=== PATIENT | male | born 1955 | race Caucasian/White ===

== ENCOUNTER 2022-06-10 10:43 | Outpatient (CLI) | payer MEDICARE, BC, SELFPAY ==
[2022-06-10 13:56] LABS: Basophils Absolute Auto 0.04 K/uL (0.00-0.30); Basophils Percent Auto 0.6 % (0.0-3.0); Chloride* 102 mmol/L (96-114); Eosinophils Absolute Auto 0.07 K/uL (0.00-0.50); Eosinophils Percent Auto 1.1 % (0.0-7.0); Hematocrit 39.6 % (37.0-53.0); Hemoglobin* 13.8 gm/dL (13.5-17.5); Immature Granulocytes Abs Auto 0.01 K/uL (0.00-0.30); Immature Granulocytes Pct Auto 0.2 %; Lymphocytes Percent Auto 16.3 % (20-44); Mean Corpuscular HGB Conc 35 gm/dL (32-36); Mean Corpuscular Hemoglobin 35 pg (26-34); Mean Corpuscular Volume 99 fL (80-100); Monocytes Percent Auto 11.8 % (0.0-11.0); Neutrophils Absolute Auto 4.56 K/uL (1.7-7.0); Platelet Count* 297 K/uL (140-440); Potassium* 4.5 mmol/L (3.6-5.1); RDW Coefficient of Variation % 12.7 % (11.5-15.5); Sodium* 138 mmol/L (135-149); White Blood Count* 6.51 K/uL (4.50-11.00)
[2022-06-10 13:58] LABS: Cholesterol* 203 mg/dL (90-199)
[2022-06-10 13:59] LABS: Blood Urea Nitrogen* 20 mg/dL (7-30); Calcium* 9.8 mg/dL (8.4-10.6); Carbon Dioxide* 27 mmol/L (20-32); Creatinine* 0.8 mg/dL (0.5-1.5); Estimated Glomerular Filt Rate 98 ml/min; Glucose* 122 mg/dL (60-115); HDL Cholesterol* 59 mg/dL (>=40); LDL Cholesterol Calculated 126 mg/dL (<100); Triglycerides* 91 mg/dL (40-149)
[2022-06-10 14:03] LABS: Slide Review Reflex No
[2022-06-10 14:28] LABS: PSA Screen* 2.13 ng/mL (0.10-4.00)
[2022-06-11 15:50] LABS: Hemoglobin A1C* 5.13 % (0-5.6)
== END 2022-06-10 10:44 | disposition home or self-care (01) ==
PROVIDERS: PCP Nurse Practitioner Family; Visit Provider Nurse Practitioner Family
DX: Z00.00 Encounter for general adult medical examination without abnormal findings (principal); I10 Essential (primary) hypertension; E78.5 Hyperlipidemia, unspecified; R73.09 Other abnormal glucose; M10.9 Gout, unspecified; F41.9 Anxiety disorder, unspecified; Z12.5 Encounter for screening for malignant neoplasm of prostate; Z13.0 Encounter for screening for diseases of the blood and blood-forming organs and certain disorders involving the immune mechanism
CPT/HCPCS: 80048; 80061; 83036; 84153; 85025

== ENCOUNTER 2023-06-23 08:53 | Outpatient (CLI) | payer MEDICARE, BC, SELFPAY | END 2023-06-23 08:54 | disposition home or self-care (01) | PROVIDERS: PCP Nurse Practitioner Family; Visit Provider Nurse Practitioner Family | DX: R73.09 Other abnormal glucose (principal); E78.5 Hyperlipidemia, unspecified; I10 Essential (primary) hypertension; M10.9 Gout, unspecified; Z13.0 Encounter for screening for diseases of the blood and blood-forming organs and certain disorders involving the immune mechanism; Z12.5 Encounter for screening for malignant neoplasm of prostate | CPT/HCPCS: 80053; 80061; 83036; 85025; G0103 ==

== ENCOUNTER 2024-08-02 13:12 | Outpatient (CLI) | payer MEDICARE, BC, SELFPAY | END 2024-08-02 13:13 | disposition home or self-care (01) | PROVIDERS: PCP Nurse Practitioner Family; Visit Provider Nurse Practitioner Family | DX: Z12.5 Encounter for screening for malignant neoplasm of prostate (principal); E78.5 Hyperlipidemia, unspecified; I10 Essential (primary) hypertension | CPT/HCPCS: 80053; 80061; 85025; G0103 ==